=== PATIENT | female | born 1960 | race Caucasian/White ===

== ENCOUNTER → 2024-03-17 12:36 | Outpatient (REF) | payer OTHER, SELFPAY | LOC: HWRCS 12:36 | PROVIDERS: ATTENDING PHYSICIAN Internal Medicine Cardiovascular Disease; FAMILY PHYSICIAN Physician Assistant Medical | DX: I34.0 Nonrheumatic mitral (valve) insufficiency (principal) | CPT/HCPCS: 93306 ==

== ENCOUNTER → 2024-03-22 07:28 | Outpatient (REF) | payer OTHER, SELFPAY | LOC: RCS 07:28 | PROVIDERS: ATTENDING PHYSICIAN Internal Medicine Cardiovascular Disease | DX: E78.2 Mixed hyperlipidemia (principal); R07.2 Precordial pain | CPT/HCPCS: 93017 ==

== ENCOUNTER → 2024-05-30 14:09 | Outpatient (REF) | payer OTHER, SELFPAY | LOC: EMG 14:09 | PROVIDERS: ATTENDING PHYSICIAN Orthopaedic Surgery; FAMILY PHYSICIAN Physician Assistant Medical | DX: R20.0 Anesthesia of skin (principal); G56.01 Carpal tunnel syndrome, right upper limb | CPT/HCPCS: 95886; 95909 ==

== ENCOUNTER 2025-02-11 09:07 | Emergency (ER) | payer OTHER, SELFPAY ==
[2025-02-11 09:09] VITALS: BP 135/83
--- NOTE | 2025-02-11 09:47 | ED.GENMED ---
History of Present Illness
General
Chief Complaint: Headache
Time Seen by Provider: 02/11/25 09:47
History of Present Illness
History of Present Illness:
FOCUSED PAST MEDICAL HISTORY
- Migraines
REVIEW OF OLD RECORDS
- The patient was seen here in 2020 with a 'postcoital headache'; at that time had negative brain CT and brain MRI.
Note:
CHIEF COMPLAINT(S)
Trigeminal neuralgia and migraine-type headache.
HISTORY OF PRESENT ILLNESS
The patient is a 64-year-old female with a history of trigeminal neuralgia and migraine-type headaches. She presented to the emergency room with several episodes of trigeminal neuralgia, which began yesterday afternoon. The patient reported that she
has experienced similar headaches in the past, lasting up to four days, but she hasnt had an episode this severe in approximately six years. She described the pain as affecting her teeth, jaw, and entire face.
She also reported photophobia, stating, 'I dont like the lights at all, I cant even lie on the bed' and prefers to keep upright. The patient mentioned experiencing nausea, but denied vomiting. Her medical history includes similar migraine-type
headaches, previously managed with a combination of Flexeril (cyclobenzaprine) and oxycodone, which provided relief.
The patient stated that she was seen a few years ago in the ER, where she received a CT scan and MRI that were unremarkable at the time. There is a debate on whether a new CT scan is necessary, but the patient insists there have been no new events
or falls to warrant it.
PAST MEDICAL AND SURGICAL HISTORY
- Trigeminal neuralgia
- Migraine-type headaches
EXTERNAL RECORDS REVIEWED
The patients emergency room records from a few years ago, which included a CT scan and MRI, both appeared normal at the time.
PHYSICAL EXAM
General: Appears uncomfortable. Appears somewhat photophobic
Skin: Warm, dry.
Head: Normocephalic, atraumatic.
Neck: Supple, trachea midline.
Eyes, ears, nose, mouth, and throat: Photophobia noted. Oral mucosa moist.
Cardiovascular: Normal peripheral perfusion, no edema.
Respiratory: Respirations are non-labored.
Gastrointestinal: Abdomen nondistended.
Back: Normal range of motion, normal alignment.
Musculoskeletal: Normal range of motion, normal strength.
Neurological: Alert and oriented to person, place, time, and situation. Normal strength and coordination in all extremities.
Psychiatric: Cooperative, appropriate mood & affect.
PLAN
The patient will be given a migraine cocktail, which includes medications like Reglan (metoclopramide), Toradol (ketorolac), and Benadryl (diphenhydramine). The aim is to alleviate her symptoms without using narcotics. Discussed the potential use of
carbamazepine, but the patient declined. She will be monitored for response to the treatment and advised to arrange for transportation home due to the sedative effects of the medications.
DIFFERENTIAL DIAGNOSIS
The Differential Diagnosis includes, in no particular order and is not limited to:
1. Migraine headache
2. Trigeminal neuralgia
3. Cluster headache
4. Tension-type headache
5. Temporal arteritis
6. Sinus headache
7. Cervicogenic headache
8. Pseudotumor cerebri
9. Acute glaucoma
10. Subarachnoid hemorrhage
SUMMARY OF ENCOUNTER
The patient, a 64-year-old female with a history of trigeminal neuralgia and migraine-type headaches, presented to the emergency department with symptoms indicative of an acute exacerbation of migraine. She received treatment, including medications
aimed at relieving her symptoms, and reported feeling significantly better after administration. Given her improved condition, consideration was made for her discharge, with advice to arrange transportation home due to the sedative effects of the
medications.
EMERGENCY TREATMENTS ADMINISTERED
The patient received a migraine cocktail including toradol (ketorolac) and reglan (metoclopramide), which alleviated her symptoms effectively.
REASSESSMENT
On reassessment, the patient felt markedly improved following administration of the medications.
PLAN
The patient will be monitored for her response to treatment and encouraged to seek transportation home due to sedative medication effects. She is advised to follow up with her neurologist for further management of her migraine-type headaches.
PATIENT EDUCATION AND COUNSELING
The patient was educated on the potential effects of Reglan, particularly the risk of movement disorders like tardive dyskinesia when given orally. She was advised to consider follow-up with a neurologist for ongoing care.
FOLLOW-UP INSTRUCTIONS
The patient was advised to follow up with her neurologist, who is known to her from previous consultations.
MEDICATION RECONCILIATION
- Toradol (ketorolac) administered.
- Reglan (metoclopramide) administered.
MEDICAL DECISION MAKING
Number and Complexity of Problems Addressed:
Chronic conditions affecting care include trigeminal neuralgia and migraine-type headaches.
Differential Diagnosis includes:
1. Migraine headache
2. Trigeminal neuralgia
3. Cluster headache
4. Tension-type headache
5. Temporal arteritis
6. Sinus headache
7. Cervicogenic headache
8. Pseudotumor cerebri
9. Acute glaucoma
10. Subarachnoid hemorrhage
Data:
Category 1
Non-emergency department records reviewed, including previous CT and MRI records, which were normal.
Clinical information was obtained about previous neurologic evaluation and management.
Category 2
The patient�s emergency department records from previous years were reviewed to confirm consistent findings and history.
Risk:
Prescription medication management was considered, but ultimately not given a prescription for Reglan due to potential side effects. The patient was administered medications on-site to alleviate symptoms and advised of side-effect management.
DIAGNOSIS
- Acute Exacerbation of Migraine (ICD-10: G43.909)
UPDATE
- Reports similar headaches in the past
- Gave meds for migraine
- Patient declines neuroimaging and she has a normal neurologic examination
- I offered carbamazepine for likely diagnosis of trigeminal neuralgia however the patient declines
- Markedly improved after meds given
Past History
Past History
ED Past Medical History: Cancer, GERD, Other (vasovagal syncope 2009, headache, infertility), Other (coronary spasm leading to vagal syncope) and Other (PCOS)
ED Past Surgical History: Cholecystectomy, Gynecological (Hysterectomy, lumpectomy left breast), Tonsilectomy and Other (Laparoscopy for endometriosis)
Social History
Tobacco: Former smoker (Quit February 24, 2021)
Alcohol: None
Drug: None
Personal:
Living: with family
Employment: Employed
Family History
Family History: CAD
Phy Exam
Physical Exam
Physical Exam:
See HPI
Course
Orders/Labs/Results
Orders:
Orders
02/11/25 09:55
0.9% Sodium Chloride 1000 ml [Nss] 1,000 ml IV BOLUS
Diphenhydramine [Benadryl] 25 mg IV NOW STA
Ketorolac [Toradol] 15 mg IV NOW STA
Metoclopramide [Reglan] 10 mg IV NOW STA
Vital Signs
Initial and Last Documented VS:
Initial Vital Signs
Temp Pulse Resp BP Pulse Ox
36.9 C 108 16 135/83 99
02/11/25 09:09 02/11/25 09:09 02/11/25 09:09 02/11/25 09:09 02/11/25 09:09
Last Documented Vital Signs
Temp Pulse Resp BP Pulse Ox
36.9 C 108 16 135/83 99
02/11/25 09:09 02/11/25 09:09 02/11/25 09:09 02/11/25 09:09 02/11/25 09:48
*Pulse Oximetry
SaO2: 99
Oxygen Mode of Delivery: Room air
Patient hypoxic: no
*Critical Care Note
Total Time (30-74mins, 75-104mins- exclusive of procedures): Not Applicable
ED Attending Note
-
Portions of this chart may have been created with voice recognition software.� Occasional wrong word or��sound alike� substitutions may have occurred due to the inherent limitations of voice recognition software.
Discharge Plan
Departure
Prescriptions:
No Action
spironolactone 50 MG tablet
100 mg PO HS
aspirin 81 MG tablet,delayed release (DR/EC)
81 mg PO DAILY
nitroglycerin 0.4 MG tablet, sublingual
0.4 mg sublingual [id number] PRN (Reason: cp)
epinephrine [EpiPen] 0.3 MG/0.3/SYRINGE auto-injector
0.3 mg IM PRN PRN (Reason: anaphylaxis)
atorvastatin 40 MG tablet
40 mg PO QPM 30 Days Qty: 30 0RF
prednisone 20 MG tablet
40 mg PO DAILY
ascorbic acid (vitamin C) [Vitamin C] 500 MG tablet
1,000 mg PO DAILY
nicotine 21 MG patch 24 hour
21 mg transdermal DAILY
vitamin B complex [Balanced B Complex] 1 TAB tablet
1 tab PO DAILY
albuterol sulfate 18 GM HFA aerosol inhaler
3 puff IH PRN PRN (Reason: sob)
zinc 10 MG tablet
10 mg PO DAILY
cholecalciferol (vitamin D3) 1,000 UNITS tablet
2 tab PO DAILY
Magnesium
1 tab PO .EVERY OTHER DAY
Vitamin E
2 tab PO DAILY
Patient Comments:
unsure of doseage
benzonatate 200 MG capsule
200 mg PO TIDPRN PRN (Reason: cough) Qty: 30 0RF
ipratropium-albuterol 3 ML solution for nebulization
3 ml inhalation QIDPRN PRN (Reason: cough, wheezing) Qty: 30 0RF
Referrals:
Solomon Perez MD [Family Provider, Family Practice]
Interventions
Interventions:
*General Assessment Last Done: 02/11/25 09:09
*Neglect/Abuse Screening Last Done: 02/11/25 09:09
[facility] Fall Risk Assessment Tool Last Done: 02/11/25 09:50
*Risk Screen - Suicide (C-SSRS) Last Done: 02/11/25 09:09
ED- Neurological Assessment Last Done: 02/11/25 11:03
Discharge Date and Time
Print Language: [place]
[2025-02-11] MEDS: REGLAN 10 MG IV (10:34)
[2025-02-11] MEDS: BENADRYL 25 MG IV (10:34)
[2025-02-11] MEDS: NSS 1000 IV (10:34)
[2025-02-11] MEDS: TORADOL 15 MG IV (10:35)
== END 2025-02-11 13:27 | disposition home or self-care (01) ==
LOC: EMR 09:07
PROVIDERS: EMERGENCY PHYSICIAN Emergency Medicine; FAMILY PHYSICIAN Family Medicine
DX: G50.0 Trigeminal neuralgia (principal); G43.909 Migraine, unspecified, not intractable, without status migrainosus; H53.149 Visual discomfort, unspecified; K21.9 Gastro-esophageal reflux disease without esophagitis; E28.2 Polycystic ovarian syndrome; Z87.891 Personal history of nicotine dependence; Z90.49 Acquired absence of other specified parts of digestive tract; Z88.5 Allergy status to narcotic agent; Z88.0 Allergy status to penicillin; Z88.7 Allergy status to serum and vaccine; Z91.040 Latex allergy status
CPT/HCPCS: 96375; 96374; 99284